=== PATIENT | female | born 1970 | race Caucasian/White ===

== ENCOUNTER → 2018-04-18 14:48 | Outpatient (CLI) | payer OTHER, SELFPAY ==
[2018-04-18 17:12] LABS: HCG Quantitative /Beta subunit < 2.39 mIU/mL
== END ==
PROVIDERS: PCP Family Medicine; Visit Provider Specialist
DX: N91.2 Amenorrhea, unspecified (principal)
CPT/HCPCS: 36415; 82670; 84144; 84702

== ENCOUNTER → 2020-08-25 08:06 | Outpatient (CLI) | payer OTHER, SELFPAY ==
[2020-08-25 08:44] LABS: Add Manual Diff / Slide Review NO; Basophils Absolute Auto 100 /uL (0-100); Basophils Percent Auto 0.9 % (0-2); Eosinophils Absolute Auto 200 /uL (0-450); Eosinophils Percent Auto 3.7 % (2-4); Hematocrit 28.8 % (36-46); Hemoglobin 9.1 g/dL (12.0-16.0); Lymphocytes Absolute Auto 2800 /uL (1100-4500); Lymphocytes Percent Auto 46.6 % (25-40); Mean Corpuscular HGB Conc 31.6 % (30-36); Mean Corpuscular Hemoglobin 22.4 PG (26-34); Mean Corpuscular Volume 70.9 fL (80-100); Monocytes Absolute Auto 400 /uL (0-900); Monocytes Percent Auto 6.8 % (3-14); Neutrophils Absolute Auto 2600 /uL (1500-7000); Platelet Count 302 X10^3/uL (150-400); Red Blood Cell Count 4.06 X10^6/uL (4.0-5.2); Red Cell Distribution Width 17.1 % (11.6-14.8); White Blood Cell Count 6.1 X10^3/uL (4.5-11.0)
[2020-08-25 08:49] LABS: Hemoglobin A1C% w Est Avg Glu 5.4 % (4.0-6.0)
[2020-08-25 09:16] LABS: Alanine Aminotransferase 16 IU/L (<35); Albumin 4.2 g/dL (3.5-5.0); Albumin Globulin Ratio 1.4 (1.0-2.8); Alkaline Phosphatase 75 U/L (38-126); Aspartate Aminotransferase 24 IU/L (14-36); BUN Creatinine Ratio 28.1 (6-22); Bilirubin Total 0.3 mg/dL (0.2-1.3); Blood Urea Nitrogen 16 mg/dL (7-17); Calcium 9.8 mg/dL (8.4-10.2); Carbon Dioxide 25 mmol/L (22-32); Chloride 104 mmol/L (98-107); Cholesterol 233 mg/dL (140-199); Estimated Glomerular Filt Rate > 60.0 mL/min (>60); Globulin 3.1 g/dL (1.7-4.1); Glucose 89 mg/dL (70-100); HDL Cholesterol 63 mg/dL (40-60); HEMOLYSIS < 15 (0-50); LDL Cholesterol Calculated 136 mg/dL (<100); Potassium 4.7 mmol/L (3.4-5.1); Sodium 138 mmol/L (137-145); Total Protein 7.3 g/dL (6.3-8.2); Triglycerides 168 mg/dL (35-150)
[2020-08-25 09:34] LABS: TSH w/ Reflex to FT4 2.55 uIU/mL (0.47-4.68)
[2020-08-25 10:05] LABS: Vitamin B12 906 pg/mL (239-931)
== END ==
PROVIDERS: Family Provider Family Medicine; PCP Student in an Organized Health Care Education/Training Program; Referring Provider Student in an Organized Health Care Education/Training Program; Visit Provider Student in an Organized Health Care Education/Training Program
DX: E78.5 Hyperlipidemia, unspecified (principal); R73.9 Hyperglycemia, unspecified; Z98.84 Bariatric surgery status
CPT/HCPCS: 36415; 80053; 80061; 82607; 83036; 84443; 85025

== ENCOUNTER → 2020-12-01 09:05 | Outpatient (CLI) | payer OTHER, SELFPAY ==
[2020-12-01 10:12] LABS: Hematocrit 28.2 % (36-46); Hemoglobin 8.5 g/dL (12.0-16.0); Mean Corpuscular HGB Conc 30.3 % (30-36); Mean Corpuscular Hemoglobin 20.7 PG (26-34); Mean Corpuscular Volume 68.4 fL (80-100); Platelet Count 323 X10^3/uL (150-400); Red Blood Cell Count 4.12 X10^6/uL (4.0-5.2); White Blood Cell Count 6.8 X10^3/uL (4.5-11.0)
[2020-12-01 10:18] LABS: Reticulocyte Count, Percent 1.1 % (1.06-2.63)
[2020-12-01 11:10] LABS: HEMOLYSIS < 15 (0-50); Iron 28 ug/dL (37-170)
[2020-12-01 11:16] LABS: Ferritin 5 ng/mL (11-264)
[2020-12-01 11:22] LABS: Percent Iron Saturation 5 % (15-50); Total Iron Binding Capacity 536 ug/dL (265-497); Transferrin 423 mg/dL (206-381)
== END ==
PROVIDERS: Family Provider Family Medicine; PCP Student in an Organized Health Care Education/Training Program; Referring Provider Student in an Organized Health Care Education/Training Program; Visit Provider Student in an Organized Health Care Education/Training Program
DX: D50.8 Other iron deficiency anemias (principal); K95.89 Other complications of other bariatric procedure
CPT/HCPCS: 36415; 82728; 83540; 83550; 85027; 85045

== ENCOUNTER → 2021-01-10 11:15 | Outpatient (CLI) | payer OTHER, SELFPAY ==
[2021-01-10 12:16] LABS: COVID19 -Nasal RAPID Negative (Negative)
== END ==
PROVIDERS: PCP Student in an Organized Health Care Education/Training Program; Referring Provider Physician Assistant; Visit Provider Physician Assistant
DX: Z20.822 Contact with and (suspected) exposure to COVID-19 (principal)
CPT/HCPCS: 87635

== ENCOUNTER → 2021-01-11 07:26 | Outpatient (CLI) | payer OTHER, SELFPAY ==
[2021-01-11 08:27] LABS: Hematocrit 27.5 % (36-46); Hemoglobin 8.4 g/dL (12.0-16.0); Mean Corpuscular HGB Conc 30.4 % (30-36); Mean Corpuscular Hemoglobin 20.3 PG (26-34); Mean Corpuscular Volume 66.7 fL (80-100); Platelet Count 302 X10^3/uL (150-400); Red Blood Cell Count 4.12 X10^6/uL (4.0-5.2); Red Cell Distribution Width 18.8 % (11.6-14.8); White Blood Cell Count 5.8 X10^3/uL (4.5-11.0)
[2021-01-11 08:38] LABS: HEMOLYSIS < 15 (0-50); Iron 28 ug/dL (37-170)
[2021-01-11 08:39] LABS: Hemoglobin A1C% w Est Avg Glu 5.4 % (4.0-6.0)
[2021-01-11 08:51] LABS: Percent Iron Saturation 6 % (15-50); Reticulocyte Count, Percent 1.2 % (1.06-2.63); Total Iron Binding Capacity 506 ug/dL (265-497); Transferrin 440 mg/dL (206-381)
[2021-01-11 09:15] LABS: Ferritin 4 ng/mL (11-264)
== END ==
PROVIDERS: Physician Assistant; PCP Student in an Organized Health Care Education/Training Program; Referring Provider Student in an Organized Health Care Education/Training Program; Visit Provider Student in an Organized Health Care Education/Training Program
DX: R35.8 Other polyuria (principal); K95.89 Other complications of other bariatric procedure; D50.8 Other iron deficiency anemias
CPT/HCPCS: 36415; 82728; 83036; 83540; 83550; 85027; 85045

== ENCOUNTER 2021-03-01 16:40 | Emergency (ER) | payer OTHER, SELFPAY ==
[2021-03-01 16:47] VITALS: PULSE 67; RESP 18; TEMP 36.7; O2SAT 100
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
[2021-03-01 19:30] VITALS: BP 137/86; PULSE 69; RESP 16; O2SAT 100
[2021-03-01] MEDS: HYDROCODONE/ACET 5/325 PREPACK 1 BOTTLE MISC (19:30)
== END 2021-03-01 19:36 | disposition home or self-care (01) ==
PROVIDERS: Emergency Provider Emergency Medicine; PCP Student in an Organized Health Care Education/Training Program
DX: S22.32XA Fracture of one rib, left side, initial encounter for closed fracture (principal); M25.512 Pain in left shoulder; V89.2XXA Person injured in unspecified motor-vehicle accident, traffic, initial encounter
CPT/HCPCS: 71101; 73030; 99281; 99283

== ENCOUNTER → 2021-08-21 14:23 | Outpatient (CLI) | payer OTHER, SELFPAY ==
[2021-08-21 14:51] LABS: Hematocrit 34.5 % (36-46); Hemoglobin 11.9 g/dL (12.0-16.0); Mean Corpuscular HGB Conc 34.3 % (30-36); Mean Corpuscular Hemoglobin 29.2 PG (26-34); Mean Corpuscular Volume 85.1 fL (80-100); Platelet Count 256 X10^3/uL (150-400); Red Blood Cell Count 4.05 X10^6/uL (4.0-5.2); Red Cell Distribution Width 12.7 % (11.6-14.8); White Blood Cell Count 6.6 X10^3/uL (4.5-11.0)
[2021-08-21 14:52] LABS: Reticulocyte Count, Percent 1.1 % (1.1-2.6)
[2021-08-21 15:12] LABS: BUN Creatinine Ratio 25.5 (6-22); Blood Urea Nitrogen 14 mg/dL (7-17); Estimated Glomerular Filt Rate > 60 mL/min (>60); HEMOLYSIS < 15 (0-50); Iron 64 ug/dL (37-170)
[2021-08-21 15:23] LABS: Percent Iron Saturation 16 % (15-50); Total Iron Binding Capacity 394 ug/dL (265-497); Transferrin 303 mg/dL (206-381)
[2021-08-21 15:48] LABS: Ferritin 23 ng/mL (11-264)
[2021-08-21 16:19] LABS: Folate > 20.0 ng/mL (2.76-20.0); Vitamin B12 > 1000 pg/mL (239-931)
== END ==
PROVIDERS: PCP Student in an Organized Health Care Education/Training Program; Referring Provider Student in an Organized Health Care Education/Training Program; Visit Provider Student in an Organized Health Care Education/Training Program
DX: K95.89 Other complications of other bariatric procedure (principal); D50.8 Other iron deficiency anemias
CPT/HCPCS: 36415; 82565; 82607; 82728; 82746; 83540; 83550; 84520; 85027; 85045

== ENCOUNTER → 2021-12-07 10:25 | Outpatient (CLI) | payer OTHER, SELFPAY ==
[2021-12-07 11:32] LABS: Reticulocyte Count, Percent 1.2 % (1.1-2.6)
[2021-12-07 11:33] LABS: Hematocrit 37.5 % (36-46); Hemoglobin 12.5 g/dL (12.0-16.0); Mean Corpuscular HGB Conc 33.2 % (30-36); Mean Corpuscular Hemoglobin 28.5 PG (26-34); Mean Corpuscular Volume 85.7 fL (80-100); Platelet Count 272 X10^3/uL (150-400); Red Blood Cell Count 4.38 X10^6/uL (4.0-5.2); Red Cell Distribution Width 13.1 % (11.6-14.8); White Blood Cell Count 5.8 X10^3/uL (4.5-11.0)
[2021-12-07 12:46] LABS: Alanine Aminotransferase 18 IU/L (<35); Albumin 4.5 g/dL (3.5-5.0); Albumin Globulin Ratio 1.2 (1.0-2.8); Alkaline Phosphatase 80 U/L (38-126); Aspartate Aminotransferase 24 IU/L (14-36); BUN Creatinine Ratio 30.4 (6-22); Bilirubin Total 0.3 mg/dL (0.2-1.3); Blood Urea Nitrogen 17 mg/dL (7-17); Calcium 9.3 mg/dL (8.4-10.2); Carbon Dioxide 26 mmol/L (22-32); Chloride 107 mmol/L (98-107); Estimated Glomerular Filt Rate > 60 mL/min (>60); Globulin 3.7 g/dL (1.7-4.1); Glucose 82 mg/dL (70-100); HEMOLYSIS < 15 (0-50); Potassium 4.2 mmol/L (3.4-5.1); Sodium 140 mmol/L (137-145); Total Protein 8.2 g/dL (6.3-8.2)
[2021-12-07 12:57] LABS: HEMOLYSIS < 15 (0-50); Iron 101 ug/dL (37-170)
[2021-12-07 13:08] LABS: Percent Iron Saturation 24 % (15-50); Total Iron Binding Capacity 420 ug/dL (265-497); Transferrin 319 mg/dL (206-381)
[2021-12-07 13:20] LABS: Ferritin 10 ng/mL (11-264)
[2021-12-07 13:31] LABS: TSH w/ Reflex to FT4 2.14 uIU/mL (0.47-4.68)
== END ==
PROVIDERS: PCP Student in an Organized Health Care Education/Training Program; Referring Provider Student in an Organized Health Care Education/Training Program; Visit Provider Student in an Organized Health Care Education/Training Program
DX: D50.8 Other iron deficiency anemias (principal); K95.89 Other complications of other bariatric procedure; R53.83 Other fatigue
CPT/HCPCS: 36415; 80053; 82728; 83540; 83550; 84443; 85027; 85045

== ENCOUNTER → 2021-12-14 07:41 | Outpatient (CLI) | payer OTHER, SELFPAY ==
[2021-12-14 09:00] LABS: Influenza A - CEPHEID Flu A NEGATIVE (NEGATIVE); Influenza B - CEPHEID Flu B NEGATIVE (NEGATIVE); Respiratory Syncytial Virus Negative (Negative)
[2021-12-14 11:03] LABS: COVID-19 CEPHEID PCR (VTM/NP) POSITIVE (Negative)
== END ==
PROVIDERS: PCP Student in an Organized Health Care Education/Training Program; Visit Provider Nurse Practitioner Family
DX: J02.9 Acute pharyngitis, unspecified (principal)
CPT/HCPCS: 0241U; 87070

== ENCOUNTER → 2022-05-15 15:13 | Outpatient (CLI) | payer OTHER, SELFPAY ==
--- NOTE | 2022-05-15 15:17 | DI.RAD.S_ITS ---
PROCEDURE: XR CHEST 2V INDICATIONS: Cough; h/o TB exposure TECHNIQUE: 2 views of the chest were acquired. COMPARISON: [facility], CR, XR RIBS LT MIN 3V W CXR1V, 03/01/2021, 16:48. [facility], CR, XR CHEST 1VW (PORTABLE), 08/01/2016, 10:59. [facility], CR, CHEST 2 VIEW, 04/17/2013, 19:49. FINDINGS: Lungs and pleura: Lungs are clear. No pleural effusions or pneumothorax. Mediastinum: Mediastinal contours are normal. Heart size is normal. Bones and chest wall: No suspicious bony abnormalities. Soft tissues appear unremarkable. IMPRESSION: No acute cardiopulmonary abnormality. Dictated by: Rocky King M.D. on 05/15/2022 at 21:19 Approved by: Rocky King M.D. on 05/15/2022 at 21:24
[2022-05-15 16:55] LABS: Add Manual Diff / Slide Review NO; Basophils Absolute Auto 0 /uL (0-100); Basophils Percent Auto 0.5 % (0-2); Eosinophils Absolute Auto 100 /uL (0-450); Eosinophils Percent Auto 2.4 % (2-4); Hematocrit 36.3 % (36-46); Lymphocytes Absolute Auto 2500 /uL (1100-4500); Lymphocytes Percent Auto 39.6 % (25-40); Mean Corpuscular Hemoglobin 28.1 PG (26-34); Mean Corpuscular Volume 85.1 fL (80-100); Monocytes Absolute Auto 500 /uL (0-900); Monocytes Percent Auto 8.5 % (3-14); Neutrophils Absolute Auto 3100 /uL (1500-7000); Platelet Count 258 X10^3/uL (150-400); Red Blood Cell Count 4.26 X10^6/uL (4.0-5.2); Red Cell Distribution Width 13.3 % (11.6-14.8); White Blood Cell Count 6.3 X10^3/uL (4.5-11.0)
[2022-05-18 03:37] LABS: QuantiFERON Mitogen Value >10.00 IU/mL (.); QuantiFERON Nil Value 0.06 IU/mL (.); QuantiFERON TB Gold Plus Negative (Negative); QuantiFERON TB1 Ag Value 0.16 IU/mL (.); QuantiFERON TB2 Ag Value 0.12 IU/mL (.)
== END ==
PROVIDERS: PCP Student in an Organized Health Care Education/Training Program; Referring Provider Student in an Organized Health Care Education/Training Program; Visit Provider Student in an Organized Health Care Education/Training Program
DX: R05.9 Cough, unspecified (principal); Z20.1 Contact with and (suspected) exposure to tuberculosis
CPT/HCPCS: 36415; 71046; 85025; 86480

== ENCOUNTER → 2023-05-09 12:25 | Outpatient (CLI) | payer OTHER, SELFPAY ==
[2023-05-09 13:42] LABS: Influenza A - CEPHEID Flu A POSITIVE (NEGATIVE); Influenza B - CEPHEID Flu B NEGATIVE (NEGATIVE); Respiratory Syncytial Virus Negative (Negative)
[2023-05-09 13:54] LABS: COVID-19 CEPHEID 4-PLEX PCR Negative (Negative)
== END ==
PROVIDERS: PCP Student in an Organized Health Care Education/Training Program; Visit Provider Nurse Practitioner Family
DX: R05.1 Acute cough (principal)
CPT/HCPCS: 0241U

== ENCOUNTER → 2023-05-09 12:31 | Outpatient (CLI) | payer OTHER, SELFPAY ==
--- NOTE | 2023-05-09 13:45 | DI.RAD.S_ITS ---
PROCEDURE: XR CHEST 2V INDICATIONS: Cough TECHNIQUE: 2 views of the chest were acquired. COMPARISON: [facility], CR, XR CHEST 2V, 05/15/2022, 15:35. FINDINGS: Surgical changes and devices: None. Lungs and pleura: Lungs are clear. No pleural effusions or pneumothorax. Mediastinum: Mediastinal contours are normal. Heart size is normal. Bones and chest wall: No suspicious bony abnormalities. Soft tissues appear unremarkable. IMPRESSION: No acute cardiopulmonary abnormalities or focal airspace disease. Dictated by: Addi Mullen M.D. on 05/09/2023 at 14:26 Approved by: Addi Mullen M.D. on 05/09/2023 at 14:27
== END ==
LOC: RAD 12:34
PROVIDERS: PCP Student in an Organized Health Care Education/Training Program; Referring Provider Nurse Practitioner Family; Visit Provider Nurse Practitioner Family
DX: R05.1 Acute cough
CPT/HCPCS: 0241U; 71046

== ENCOUNTER → 2023-07-24 08:28 | Outpatient (CLI) | payer OTHER, SELFPAY ==
[2023-07-24 09:52] LABS: Add Manual Diff / Slide Review NO; Basophils Absolute Auto 0 /uL (0-100); Basophils Percent Auto 0.5 % (0-2); Eosinophils Absolute Auto 200 /uL (0-450); Eosinophils Percent Auto 2.9 % (2-4); Hematocrit 34.4 % (36-46); Hemoglobin 11.4 g/dL (12.0-16.0); Lymphocytes Absolute Auto 2300 /uL (1100-4500); Lymphocytes Percent Auto 45.3 % (25-40); Mean Corpuscular HGB Conc 33.1 % (30-36); Mean Corpuscular Hemoglobin 27.2 PG (26-34); Mean Corpuscular Volume 82.2 fL (80-100); Monocytes Absolute Auto 400 /uL (0-900); Monocytes Percent Auto 8.1 % (3-14); Neutrophils Absolute Auto 2200 /uL (1500-7000); Neutrophils Percent Auto 43.2 % (50-75); Platelet Count 264 X10^3/uL (150-400); Red Blood Cell Count 4.19 X10^6/uL (4.0-5.2); Red Cell Distribution Width 13.8 % (11.6-14.8); White Blood Cell Count 5.2 X10^3/uL (4.5-11.0)
[2023-07-24 10:09] LABS: HEMOLYSIS < 15 (0-50); Iron 91 ug/dL (37-170)
[2023-07-24 10:12] LABS: Alanine Aminotransferase 18 IU/L (<35); Albumin 4.3 g/dL (3.5-5.0); Albumin Globulin Ratio 1.2 (1.0-2.8); Alkaline Phosphatase 83 U/L (38-126); Aspartate Aminotransferase 25 IU/L (14-36); BUN Creatinine Ratio 29.1 (6-22); Bilirubin Total 0.6 mg/dL (0.2-1.3); Blood Urea Nitrogen 16 mg/dL (7-17); Calcium 9.4 mg/dL (8.4-10.2); Carbon Dioxide 27 mmol/L (22-32); Chloride 108 mmol/L (98-107); Cholesterol 217 mg/dL (140-199); Estimated Glomerular Filt Rate > 60 mL/min (>60); Globulin 3.6 g/dL (1.7-4.1); Glucose 90 mg/dL (70-100); HDL Cholesterol 62 mg/dL (40-60); HEMOLYSIS < 15 (0-50); LDL Cholesterol Calculated 129 mg/dL (<100); Potassium 5.1 mmol/L (3.4-5.1); Sodium 141 mmol/L (137-145); Total Protein 7.9 g/dL (6.3-8.2); Triglycerides 130 mg/dL (35-150)
[2023-07-24 10:20] LABS: Percent Iron Saturation 19 % (15-50); Total Iron Binding Capacity 479 ug/dL (265-497); Transferrin 386 mg/dL (206-381)
== END ==
PROVIDERS: PCP Family Medicine; Referring Provider Family Medicine; Visit Provider Family Medicine
DX: Z00.00 Encounter for general adult medical examination without abnormal findings (principal); R53.83 Other fatigue; K95.89 Other complications of other bariatric procedure; D50.8 Other iron deficiency anemias; E78.2 Mixed hyperlipidemia
CPT/HCPCS: 36415; 80053; 80061; 83540; 83550; 85025

== ENCOUNTER 2025-02-09 10:31 | Emergency (ER) | payer OTHER, SELFPAY ==
[2025-02-09] VITALS (13 sets, daily range): BP systolic 117–150; BP diastolic 59–82; PULSE 68–81; RESP 13–27; O2SAT 93–100; BMI 28.5
--- NOTE | 2025-02-09 10:39 | EKG_ITS ---
[address] [address] Test Date: 2025-02-09 Pat Name: Gerald Vanegas Department: Room: Gender: Female Human Resources Representative: LILIANE : 1970 Requested By: Order Number: [id number] Reading MD: Hermann Garcia Measurements Intervals [place] Rate: 73 P: 64 OK: 168 QRS: -1 QRSD: 80 T: 46 QT: 428 QTc: 471 Interpretive Statements Normal sinus rhythm Possible Left atrial enlargement Possible Inferior infarct , age undetermined Electronically Signed On 02-10-2025 10:28:52 PDT by Hermann Garcia
[2025-02-09 11:00] LABS: Add Manual Diff / Slide Review NO; Hematocrit 31.9 % (36-46); Hemoglobin 10.5 g/dL (12.0-16.0); Lymphocytes Absolute Auto 2200 /uL (1100-4500); Mean Corpuscular HGB Conc 32.9 % (30-36); Mean Corpuscular Hemoglobin 25.1 PG (26-34); Mean Corpuscular Volume 76.2 fL (80-100); Platelet Count 336 X10^3/uL (150-400)
[2025-02-09 11:12] LABS: Alanine Aminotransferase 20 IU/L (<35); Albumin 4.7 g/dL (3.5-5.0); Albumin Globulin Ratio 1.1 (1.0-2.8); Alkaline Phosphatase 104 U/L (38-126); Blood Urea Nitrogen 19 mg/dL (7-17); Calcium 9.2 mg/dL (8.4-10.2); Carbon Dioxide 24 mmol/L (22-32); Chloride 105 mmol/L (98-107); Estimated Glomerular Filt Rate > 60 mL/min (>60); Globulin 4.3 g/dL (1.7-4.1); Glucose 156 mg/dL (70-99); HEMOLYSIS < 15 (0-50); Lipase 136 U/L (23-300); Potassium 4.3 mmol/L (3.4-5.1); Sodium 139 mmol/L (137-145); Total Protein 9.0 g/dL (6.3-8.2)
[2025-02-09] MEDS: ONDANSETRON 4 MG/2 ML INJ IV (11:15)
--- NOTE | 2025-02-09 11:28 | DI.CT.S_ITS ---
PROCEDURE: CT HEAD/BRAIN WO CON INDICATIONS: dizziness TECHNIQUE: Noncontrast 4.5 mm thick angled axial sections acquired from the foramen magnum to the vertex, with coronal and sagittal reformats. For radiation dose reduction, the following was used: automated exposure control, adjustment of mA and/or kV according to patient size. COMPARISON: No prior CT head. MR brain 02/13/2016 FINDINGS: Image quality: Diagnostic. Some images are limited by beam hardening artifacts most notably at the base of the skull. Focal area of low attenuation and volume loss right frontoparietal vertex unchanged. A ventricles and cortical sulci are within normal limits in size for patient's age. Mild cerebellar atrophy. No CT evidence of intracranial hemorrhage, mass lesion, mass effect, acute or subacute infarct. 2 cm possible retention cyst left maxillary sinus less likely polyp or other. IMPRESSION: Low attenuation and volume loss right frontal parietal junction unchanged. Left maxillary sinus possible retention cyst. No CT evidence of intracranial hemorrhage. If symptoms persist or worsen, or there is high clinical suspicion of intracranial abnormality, MRI could be performed. Dictated by: Ced Valle M.D. on 02/09/2025 at 12:59 Approved by: Ced Valle M.D. on 02/09/2025 at 13:02
--- NOTE | 2025-02-09 11:30 | PC.NURSE ---
pt states she wants to be checked for stroke due to her history of stroke in 2013. provider made aware and ct ordered per provider orders. provider made aware of pt laying back and bumping head on bedrail after ambulating. no facial droop or weakness appreciated
--- NOTE | 2025-02-09 11:36 | PC.NURSE ---
This TILTROTOR CREW CHIEF assisted this patient onto the commode. When patient stood up this TILTROTOR CREW CHIEF assisted patient to pull up pants. Patient then turned by herself to sit on the bed. Patient sat down and then laid straight back instead of turning to lay back on the head of the bed. As a result patient hit back of head on bed rail. This TILTROTOR CREW CHIEF asked patient if they needed help up and offered a hand, but patient refused. This TILTROTOR CREW CHIEF asked if patient was feeling pain and patient stated no. Patient then sat up and turned herself onto the bed. This TILTROTOR CREW CHIEF then assisted patient with blankets and call light, hooked her back up to the monitor, and collected urine sample. This TILTROTOR CREW CHIEF then asked patient if they needed anything else and patient asked to speak with nurse. This TILTROTOR CREW CHIEF notified RN of previous events. RN then notified doctor.
--- NOTE | 2025-02-09 11:37 | ED_ITS ---
HPI - Nausea/Vomiting/Diarrhea General Chief complaint: Nausea/Vomiting/Diarrhea Stated complaint: vertigo, vomiting Source: patient and EMS Mode of arrival: EMS History of Present Illness HPI Narrative: 54-year-old female presents with dizziness lightheadedness room spinning sensation follow up by numerous bouts of nonbilious nonbloody nausea vomiting after having a bowel movement. She last had a bowel movement earlier today normal. Patient denies headache, fever, chills, stiff neck, rash, cough, runny nose, sore throat, chest pain, shortness of breath, dyspnea on exertion. In fact she just saw her PCP 1 week ago for annual checkup. Other than what is stated 14 point review system is negative. Related Data Previous Rx's ?Medication ?Instructions ?Recorded amoxicillin 500 mg-potassium 1 tab PO BID #10 tabs 12/27 clavulanate 125 mg tablet (Augmentin) meclizine 25 mg tablet 25 mg PO TID #30 tabs Allergies Allergy/AdvReac Type Severity Reaction Status Date / Time No Known Drug Allergies Allergy Verified 02/09/25 10:37 Review of Systems Review of Systems ROS Unobtainable: All systems reviewed & are unremarkable except as noted in HPI and below Patient History Medical History (Updated 02/09/25 @ 14:23 by Pérez Alvarez DO) COVID-19 TIA (transient ischemic attack) (~2013) History of BCG vaccination History of prediabetes Surgical History (Updated 12/07/21 @ 10:13 by Cristhian Caldwell MD) Anesthesia History of eye surgery (~2018) Fibroids (~2012) History of bladder surgery (~2012) H/O gastric bypass Family History Father History of heart disease Hypertension Hyperlipidemia Mother Diabetes mellitus History of heart disease Hyperlipidemia Hypertension Stroke Smoking Status: Unknown if ever smoked Exam Narrative Exam Narrative: GENERAL: [54] year old patient appears stated age. Well-developed patient, in mild distress. HEAD: Atraumatic. Normocephalic. EYES: Pupils equal round and reactive. Extraocular motions intact. No scleral icterus. No injection or drainage. ENT: Nose without bleeding, purulent drainage. Throat without erythema, tonsillar hypertrophy or exudate. Airway patent. NECK: Trachea midline. Non tender CARDIOVASCULAR: Regular rate and rhythm without murmurs, gallops, or rubs. RESPIRATORY: Clear to auscultation. Breath sounds equal bilaterally. No wheezes, rales, or rhonchi. GASTROINTESTINAL: Abdomen soft, non-tender, nondistended. EXTREMITIES: No edema or joint tenderness. BACK: Nontender without deformity or crepitance. No flank tenderness. NEURO: AOx3. GCS 15 nonfocal neuro exam SKIN: No rash or erythema of visible areas Initial Vital Signs Initial Vital Signs: Vital Signs Pulse Rate 76 02/09/25 10:37 Respiratory Rate 22 02/09/25 10:37 Pulse Oximetry 97 02/09/25 10:37 Oxygen Delivery Method Room Air 02/09/25 10:37 Course Orders Ordered: ED Orders 02/09/25 10:41 EKG-12 Lead Stat 02/09/25 10:46 Complete Blood Count AUTO DIFF Stat Comprehensive Metabolic Panel Stat Lipase Stat 02/09/25 11:28 CT head/brain wo con Stat Ondansetron HCl (Ondansetron 4 Mg/2 Ml Inj) 4 mg IV NOW PRN PRN Reason: Nausea And Vomiting Last Admin: 02/09/25 11:15 Dose: 4 mg Documented By: SBF Ondansetron HCl (Ondansetron 4 Mg Odt) 4 mg PO NOW PRN PRN Reason: Nausea And Vomiting Vital Signs Vital signs: Vital Signs - 8 hr 02/09/25 10:37 02/09/25 10:39 02/09/25 10:43 Pulse Rate 76 76 Respiratory Rate 22 Blood Pressure 138/79 Pulse Oximetry 97 97 Oxygen Delivery Method Room Air 02/09/25 10:43 02/09/25 11:00 02/09/25 11:00 Pulse Rate 73 69 Respiratory Rate Blood Pressure 139/75 Pulse Oximetry 96 99 Oxygen Delivery Method MDM - Nausea/Vomiting/Diarrhea Lab Data 02/09/25 10:46 02/09/25 10:46 Labs: Lab Results 02/09/25 Range/Units 10:46 WBC 9.8 (4.5-11.0) X10^3/uL RBC 4.18 (4.0-5.2) X10^6/uL Hgb 10.5 L (12.0-16.0) g/dL Hct 31.9 L (36-46) % MCV 76.2 L (80-100) fL MCH 25.1 L (26-34) PG MCHC 32.9 (30-36) % RDW 15.5 H (11.6-14.8) % Plt Count 336 (150-400) X10^3/uL Neut % (Auto) 72.4 (50-75) % Lymph % (Auto) 22.6 L (25-40) % Stanley % (Auto) 4.1 (3-14) % Eos % (Auto) 0.4 L (2-4) % Baso % (Auto) 0.5 (0-2) % Neut # (Auto) 7100 H (9431-1679) /uL Lymph # (Auto) 2200 (3046-3339) /uL Stanley # (Auto) 400 (0-900) /uL Eos # (Auto) 0 (0-450) /uL Baso # (Auto) 100 (0-100) /uL Sodium 139 (137-145) mmol/L Potassium 4.3 (3.4-5.1) mmol/L Chloride 105 (98-107) mmol/L Carbon Dioxide 24 (22-32) mmol/L BUN 19 H (7-17) mg/dL Creatinine 0.55 (0.52-1.04) mg/dL Estimated GFR > 60 (>60) mL/min BUN/Creatinine Ratio 34.5 H (6-22) Glucose 156 H (70-99) mg/dL Calcium 9.2 (8.4-10.2) mg/dL Total Bilirubin 0.3 (0.2-1.3) mg/dL AST 28 (14-36) IU/L ALT 20 (<35) IU/L Alkaline Phosphatase 104 (38-126) U/L Total Protein 9.0 H (6.3-8.2) g/dL Albumin 4.7 (3.5-5.0) g/dL Globulin 4.3 H (1.7-4.1) g/dL Albumin/Globulin Ratio 1.1 (1.0-2.8) Lipase 136 (23-300) U/L Urine Dip Bedside Urine Glucose Negative Bedside Urine Bilirubin - Negative Bedside Urine Ketone - Negative Urine Specific [place] 1.015 Bedside Urine Occult Blood - Negative Bedside Urine pH 6.5 Bedside Urine Protein +/- 15 Bedside Urine Urobilinogen - Negative Bedside Urine Nitrite - Negative Bedside Urine Leukocytes - Negative Esterase Imaging Data CT scan - head: Radiologist's Impression: [address] [address] [address] Scan Report Signed Patient: Gerald Vanegas MR#: [id number] : 1970 Acct:[id number] Age/Sex: 54 / F Date of Service: 02/09/25 Loc: ED Accession Number: [id number] Procedure: CT head/brain wo con Ordering Provider: Pérez Alvarez D.O. PROCEDURE: CT HEAD/BRAIN WO CON INDICATIONS: dizziness TECHNIQUE: Noncontrast 4.5 mm thick angled axial sections acquired from the foramen magnum to the vertex, with coronal and sagittal reformats. For radiation dose reduction, the following was used: automated exposure control, adjustment of mA and/or kV according to patient size. COMPARISON: No prior CT head. MR brain 02/13/2016 FINDINGS: Image quality: Diagnostic. Some images are limited by beam hardening artifacts most notably at the base of the skull. Focal area of low attenuation and volume loss right frontoparietal vertex unchanged. A ventricles and cortical sulci are within normal limits in size for patient's age. Mild cerebellar atrophy. No CT evidence of intracranial hemorrhage, mass lesion, mass effect, acute or subacute infarct. 2 cm possible retention cyst left maxillary sinus less likely polyp or other. IMPRESSION: Low attenuation and volume loss right frontal parietal junction unchanged. Left maxillary sinus possible retention cyst. No CT evidence of intracranial hemorrhage. If symptoms persist or worsen, or there is high clinical suspicion of intracranial abnormality, MRI could be performed. Dictated by: Ced Valle M.D. on 02/09/2025 at 12:59 Chest x-ray: Radiologist's Impression: [address] [address] XRay Report Signed Patient: Gerald Vanegas MR#: [id number] : 1970 Acct:[id number] Age/Sex: 54 / F Date of Service: 02/09/25 Loc: ED Accession Number: [id number] Procedure: XR chest 1V Ordering Provider: Pérez Alvarez D.O. PROCEDURE: XR CHEST 1V INDICATIONS: dizziness TECHNIQUE: One view of the chest was acquired. COMPARISON: [facility], CR, XR CHEST 2V, 05/15/2022. FINDINGS: Cardiopericardial silhouette and pulmonary vasculature within normal limits. No pneumothorax, no pleural effusion, no focal consolidation. IMPRESSION: No radiographic evidence acute abnormality. If symptoms persist or worsen, or there is high clinical suspicion of thoracic abnormality, CT chest could be performed. MDM Narrative Medical decision making narrative: All lab work, vital signs, nurse triage note, medication list, previous ER visits, and imaging studies reviewed. WBC 9.8 hemoglobin 10.5 platelets 336 sodium 139 potassium 4.3 chloride 105 bicarb 24 BUN 19 creatinine 0.55 glucose 156 magnesium 2.0 troponin less than 0.012 BNP 39 lipase [address] head showed no acute process. Chest x-ray showed no acute process. Patient given fluids steroids and Benadryl here. Patient is no longer symptomatic at this time. Differential diagnosis vertigo, viral labrinythis , CVA, TIA, hemorrhage, aneurysm. DC home on meclizine. Discharge Plan Departure Patient Disposition: Home Clinical Impression: Vertigo Instructions: DI for Vertigo Activity Restrictions/Additional Instructions: Return with new or worsening symptoms. Take your medicines directed. Keep hydrated. Follow up PCP 1-2 weeks if no improvement in symptoms. Prescriptions: New meclizine 25 mg tablet 25 mg PO TID Qty: 30 0RF No Action amoxicillin-pot clavulanate [Augmentin] 500-125 mg tablet 1 tab PO BID Qty: 10 0RF Referrals: Asia Cheung DO [Primary Care Provider, Family Practice] Stand Alone Forms: Patient Portal/API
[2025-02-09] MEDS: diphenhydrAMINE 50 MG/ML VIAL IV (11:55)
[2025-02-09] MEDS: LACTATED RINGERS 1,000 ML 1000 ML IV (11:55)
[2025-02-09 11:57] LABS: Magnesium 2.0 mg/dL (1.6-2.3)
[2025-02-09 12:09] LABS: NT-proBNP (BNP-Adult 18+) 39 pg/mL (<125); Troponin I < 0.012 ng/mL (0.01-0.034)
[2025-02-10 06:36] LABS: Labcorp Creatine Kinase MB 1.2 ng/mL (0.0-5.3)
== END 2025-02-09 15:03 | disposition home or self-care (01) ==
PROVIDERS: Emergency Provider Family Medicine; PCP Internal Medicine
DX: R42 Dizziness and giddiness (principal)
CPT/HCPCS: 36415; 70450; 71045; 80053; 81003; 82553; 83690; 83735; 83880; 84484; 85025; 93005; 96361; 96374; 96375; 99284; J1100; J1200; J2405; J7120